=== PATIENT | male | born 1965 | race Caucasian/White ===

== ENCOUNTER 2017-07-09 12:21 | Emergency (ER) | payer MEDICAID ==
[~2017-07-09] VITALS: Ht 172.7 cm; Wt 84.1 kg
[2017-07-09] MEDS ORDERED: CEPH-571 PO (12:37)
[2017-07-09 12:44] VITALS: BP 115/76
== END 2017-07-09 12:48 ==
LOC: ER 12:21
DX: L03.115 Cellulitis of right lower limb (principal); F15.10 Other stimulant abuse, uncomplicated; Z98.890 Other specified postprocedural states; Z59.0 Homelessness; Z56.0 Unemployment, unspecified; Z79.899 Other long term (current) drug therapy
CPT/HCPCS: 99283

== ENCOUNTER 2019-02-25 22:06 | Emergency (ER) | payer MEDICAID, OTHER ==
[~2019-02-25] VITALS: Ht 172.7 cm; Wt 59.0 kg
[~2019-02-25 22:06] MED LIST: CEPH-571 PO
[2019-02-25] MEDS ORDERED: morphine 4 MG/ML inj SYRINge IV ONE (22:20)
[2019-02-25 23:36] VITALS: BP 136/86
[2019-02-25] MEDS ORDERED: LIDOcaine 1% w/EPI 1:200,000 injection 10mL vial IM ONE (23:50)
[2019-02-25] MEDS ORDERED: LIDOcaine 1% w/epiNEPHrine 1:200,000 30ml vial IM ONE (23:50)
[2019-02-26] MEDS ORDERED: LIDOcaine 1% w/EPI 1:200,000 injection 10mL vial IM ONE (01:20)
[2019-02-26] MEDS ORDERED: AMOX-580 PO (01:48)
[2019-02-26] MEDS ORDERED: HYDR-3965 PO (01:48)
[2019-02-26] MEDS ORDERED: amox tr/potassium clavulanate 875/125mg TAB PO ONE (01:50)
== END 2019-02-26 02:15 | disposition home or self-care (01) ==
LOC: ER 22:06
DX: S81.811A Laceration without foreign body, right lower leg, initial encounter (principal); S81.831A Puncture wound without foreign body, right lower leg, initial encounter; F20.9 Schizophrenia, unspecified; F41.9 Anxiety disorder, unspecified; F32.9 Major depressive disorder, single episode, unspecified; F15.90 Other stimulant use, unspecified, uncomplicated; Z56.0 Unemployment, unspecified; Z59.0 Homelessness; W54.0XXA Bitten by dog, initial encounter; Y93.9 Activity, unspecified; Y92.009 Unspecified place in unspecified non-institutional (private) residence as the place of occurrence of the external cause; Y99.9 Unspecified external cause status
CPT/HCPCS: 12004; 73590; 96374; 99284; J2270

== ENCOUNTER 2019-10-09 02:08 | Emergency (ER) | payer MEDICAID ==
[~2019-10-09] VITALS: Ht 172.7 cm; Wt 68.2 kg
[2019-10-09] MEDS ORDERED: ondansetron/PF 4mg/2ml inj IV ONE (02:20)
[2019-10-09 02:34] LABS: BASOPHILS # (AUTO) 0.2 X10'3 (0-0.2); BASOPHILS % (AUTO) 1.2 % (0-1); EOSINOPHILS # (AUTO) 0.2 X10'3 (0-0.9); EOSINOPHILS % (AUTO) 0.9 % (0-6); HEMATOCRIT 40.5 % (42.0-52.0); HEMOGLOBIN 13.5 g/dl (14.0-17.9); LYMPHOCYTES # (AUTO) 2.6 X10'3 (1.1-4.8); MEAN CORPUSCULAR HEMOGLOBIN 30.2 PG (27.0-31.0); MEAN CORPUSCULAR HGB CONC 33.4 g/dL (33.0-36.5); MEAN CORPUSCULAR VOLUME 90.5 FL (78-98); MEAN PLATELET VOLUME 8.4 FL (7.4-10.4); MONOCYTES # (AUTO) 1.1 X10'3 (0-0.9); MONOCYTES % (AUTO) 6.4 % (2-12); NEUTROPHILS # (AUTO) 13.2 X10'3 (1.8-7.7); NEUTROPHILS % (AUTO) 76.5 % (42-75); PLATELET COUNT 305 X10'3 (140-440); RED BLOOD COUNT 4.47 X10'6 (4.70-6.10); RED CELL DISTRIBUTION WIDTH 13.8 % (11.5-14.5); WHITE BLOOD COUNT 17.3 X10'3 (4.5-11.0)
[2019-10-09] MEDS ORDERED: iohexol 300mg/ml 100ml inj. ONE (02:35)
[2019-10-09 02:49] LABS: PARTIAL THROMBOPLASTIN TIME 24 SECONDS (22-32)
[2019-10-09 02:50] LABS: ALANINE AMINOTRANSFERASE 42 U/L (12-78); ALBUMIN 3.3 G/DL (3.4-5.0); ALBUMIN/GLOBULIN RATIO 0.7 (1.1-1.5); ALKALINE PHOSPHATASE 83 IU/L (46-116); ANION GAP 9 (8-16); BILIRUBIN,TOTAL 0.3 MG/DL (0.1-1.0); BLOOD UREA NITROGEN 17 MG/DL (7-18); CALCIUM 8.3 MG/DL (8.5-10.1); CHLORIDE 106 MMOL/L (99-107); CREATININE 1.21 MG/DL (0.60-1.10); GLUCOSE 170 MG/DL (70-104); SODIUM 139 MMOL/L (135-145); TOTAL CARBON DIOXIDE 24.1 MMOL/L (24-32); TOTAL PROTEIN 7.9 G/DL (6.4-8.2); eGFR 62 ML/MIN
[2019-10-09 02:52] LABS: ASPARTATE AMINO TRANSFERASE 55 U/L (10-37); ETHANOL < 0.010 GM/DL (0.0-0.010); POTASSIUM 4.2 MMOL/L (3.5-5.1)
[2019-10-09] MEDS: morphine 4 MG/ML inj SYRINge IV PRN ×4 (03:21→05:54)
[2019-10-09] MEDS ORDERED: NO HOME MEDS (03:39)
[2019-10-09] MEDS ORDERED: morphine 4 MG/ML inj SYRINge IV ONE (04:30)
--- NOTE | 2019-10-09 04:55 | NUR ---
pt moved from bed 9 to bed 4
[2019-10-09] MEDS ORDERED: LIDOcaine 1% W/epiNEPHrine 1:100,000 20ml vial SQ ONE (05:20)
[2019-10-09] MEDS ORDERED: fentaNYL/PF 50MCG/1 ML 2ML syringe IV ONE (06:00)
--- NOTE | 2019-10-09 06:16 | NUR ---
pt states he does not need to urinate at this time. pt instructed we need a urine sample. pt states he will provide one "soon" pt is now sleeping. no signs of distress.
--- NOTE | 2019-10-09 06:43 | NUR ---
Spoke with patient about calling Gideon who is listed as next of kin/family member. When asked he said, "why?" I told him just so that he could have family aware and available for him. He shook his head and said, "no". Will not contact family per patients request.
[2019-10-09 07:15] VITALS: BP 125/83
== END 2019-10-09 07:21 | disposition short-term general hospital (02) ==
LOC: ER 02:08
DX: S02.92XB Unspecified fracture of facial bones, initial encounter for open fracture (principal); R10.31 Right lower quadrant pain; R22.0 Localized swelling, mass and lump, head; J93.83 Other pneumothorax; F41.9 Anxiety disorder, unspecified; F32.9 Major depressive disorder, single episode, unspecified; F20.9 Schizophrenia, unspecified; F15.90 Other stimulant use, unspecified, uncomplicated; Z98.890 Other specified postprocedural states; Z87.11 Personal history of peptic ulcer disease; Z56.0 Unemployment, unspecified; Z59.0 Homelessness; X58.XXXA Exposure to other specified factors, initial encounter; Y93.89 Activity, other specified; Y92.89 Other specified places as the place of occurrence of the external cause; Y99.8 Other external cause status
CPT/HCPCS: 32551; 36415; 70450; 70486; 71045; 71260; 72125; 74177; 80053; 80320; 85025; 85610; 85730; 86885; 86900; 86901; 96374; 96375; 96376; 99285; J2270; J2405; Q9967

== ENCOUNTER 2020-04-22 08:33 | Emergency (ER) | payer MEDICAID ==
[~2020-04-22] VITALS: Ht 172.7 cm; Wt 68.2 kg
[~2020-04-22 08:33] MED LIST changes: -CEPH-571 PO; +NO HOME MEDS
[2020-04-22 08:49] VITALS: BP 114/78
[2020-04-22] MEDS ORDERED: ketorolac tromethamine 15mg/ml inj. IM ONE (09:05)
[2020-04-22] MEDS ORDERED: acetaminophen 325mg tablet PO ONE (09:05)
== END 2020-04-22 09:28 | disposition home or self-care (01) ==
LOC: ER 08:34
DX: M54.89 Other dorsalgia (principal); F41.9 Anxiety disorder, unspecified; F32.9 Major depressive disorder, single episode, unspecified; F20.9 Schizophrenia, unspecified; F15.90 Other stimulant use, unspecified, uncomplicated; Z87.11 Personal history of peptic ulcer disease; Z98.890 Other specified postprocedural states; Z56.0 Unemployment, unspecified; Z59.0 Homelessness
CPT/HCPCS: 96372; 99283; J1885

== ENCOUNTER 2021-12-14 11:14 | Emergency (ER) | payer MEDICAID ==
[~2021-12-14] VITALS: Ht 172.7 cm; Wt 72.7 kg
[2021-12-14 11:15] VITALS: BP 131/82
== END 2021-12-14 13:51 | disposition left against medical advice (07) ==
LOC: ER 11:14
DX: L02.419 Cutaneous abscess of limb, unspecified (principal); Z53.21 Procedure and treatment not carried out due to patient leaving prior to being seen by health care provider

== ENCOUNTER 2022-02-03 16:14 | Emergency (ER) | payer MEDICAID ==
[~2022-02-03] VITALS: Ht 172.7 cm; Wt 72.7 kg
[2022-02-03 16:19] VITALS: BP 141/86
== END 2022-02-03 20:06 | disposition left against medical advice (07) ==
LOC: ER 16:15
DX: M79.605 Pain in left leg (principal); Z53.21 Procedure and treatment not carried out due to patient leaving prior to being seen by health care provider

== ENCOUNTER 2022-02-07 16:33 | Emergency (ER) | payer MEDICAID ==
--- NOTE | 2022-02-07 17:13 | NUR ---
patient left before triage, "i will not wait for 5 hours".
== END 2022-02-07 19:36 | disposition left against medical advice (07) ==
LOC: ER 16:33
DX: M79.606 Pain in leg, unspecified (principal); Z53.21 Procedure and treatment not carried out due to patient leaving prior to being seen by health care provider
CPT/HCPCS: 99284

== ENCOUNTER 2023-03-21 09:40 | Emergency (ER) | payer MEDICAID ==
[~2023-03-21] VITALS: Ht 172.7 cm; Wt 70.6 kg
[2023-03-21 09:46] VITALS: BP 144/92; PULSE 87; TEMP 97.9; O2SAT 98
[2023-03-21 11:07] VITALS: RESP 16
[2023-03-21] MEDS: CefTRIAXone 1000mg IM Kit (w/lidocaine diluent) IM ONE (11:07)
[2023-03-21] MEDS: ketorolac trometh. 30mg/ml inj. IM ONE (11:07)
[2023-03-21] MEDS ORDERED: SULF1TAB49 PO (11:46)
[2023-03-21] MEDS ORDERED: CEPH-585 PO (11:46)
== END 2023-03-21 12:13 | disposition home or self-care (01) ==
LOC: ER 09:41
DX: L03.113 Cellulitis of right upper limb (principal); L02.511 Cutaneous abscess of right hand; F15.90 Other stimulant use, unspecified, uncomplicated; Z56.0 Unemployment, unspecified; Z59.00 Homelessness unspecified
CPT/HCPCS: 73140; 96372; 99284; J0696; J1885

== ENCOUNTER 2023-11-03 22:15 | Emergency (ER) | payer MEDICAID, OTHER ==
[~2023-11-03] VITALS: Ht 172.7 cm; Wt 71.6 kg
[2023-11-03] MEDS: acetaminophen 325mg tablet PO ONE (22:44)
[2023-11-03] MEDS: loperamide 2mg capsule PO ONE (22:44)
[2023-11-03] MEDS: ondansetron 4mg rapidly disintigrating tab PO ONE (22:45)
[2023-11-03] MEDS ORDERED: ONDA-243 PO (22:46)
[2023-11-03] MEDS ORDERED: ACET-1131 PO (23:57)
[2023-11-03] MEDS ORDERED: LOPE-190 PO (23:57)
[2023-11-04 00:04] VITALS: BP 120/64; PULSE 74; RESP 14; TEMP 98.2; O2SAT 100
== END 2023-11-04 00:06 | disposition home or self-care (01) ==
LOC: ER 22:16
DX: R11.10 Vomiting, unspecified (principal); R19.7 Diarrhea, unspecified; Z20.822 Contact with and (suspected) exposure to COVID-19; F41.9 Anxiety disorder, unspecified; F32.A Depression, unspecified; Z79.899 Other long term (current) drug therapy; Z98.890 Other specified postprocedural states; Z56.0 Unemployment, unspecified; Z59.00 Homelessness unspecified; F15.90 Other stimulant use, unspecified, uncomplicated
CPT/HCPCS: 36415; 87811; 99284

== ENCOUNTER 2024-10-13 16:21 | Emergency (ER) | payer MEDICAID ==
[~2024-10-13] VITALS: Ht 170.2 cm; Wt 81.8 kg
[~2024-10-13 16:21] MED LIST changes: +LOPE-190 PO; +ONDA-243 PO
[2024-10-13] MEDS ORDERED: LIDOcaine 1% W/epiNEPHrine 1:200,000 10ml vial IJ STA (20:31)
[2024-10-13] MEDS: TETanus/Pertussis (Acell)/Diphther VAC/PF (Tdap-Adult) 0.5ml syringe IMVAC ONE (20:49)
[2024-10-13] MEDS: cephalexin 250mg capsule PO ONE (20:50)
[2024-10-13] MEDS: LIDOcaine 1% W/epiNEPHrine 1:100,000 20ml vial IJ STA (21:07)
[2024-10-13] MEDS ORDERED: CEPH-585 PO (21:24)
--- NOTE | 2024-10-13 21:25 | Physician Documentation ---
History of Present Illness ~ Chief Complaint: Bite-animal Stated Complaint: DOG BITE Time Seen by MD: 19:24 Primary Medical Doctor: rodney grubbs Source: patient Mode of Arrival: POV Exam Limitations: no limitations HPI 58-year-old male presents to the department via EMS for dog bites to his left hand. He has multiple puncture hawkins with bleeding controlled and a laceration to the left index finger on the palmar side. The vaccine status of the dog is unknown, last tetanus unknown. EMS did clean wound and applied dressing prior to arrival. Tetanus within 5 years?: No Medication Reconciliation Allergies: Coded Allergies: No Known Allergies (Unverified , 11/03/23) Scheduled Cephalexin*Monohydrate* (Keflex*), 1 CAP PO Q8H Loperamide HCl (Imodium A-D), 1 CAP PO Q8H Scheduled PRN ONDANSETRON ODT 4mg tablet (Ondansetron Odt), 1 TAB PO Q6H PRN PRN for nausea/vomiting Miscellaneous Medications Home Med List (No Home Medications), (Reported) Past Medical History Past Medical History: Peptic Ulcer Disease, Anxiety, Depression, Schizophrenia Past Surgical History: orthopedic surgeries, other Alcohol Use: None Drug Use: methamphetamine Lives with: Other Lives In: Homeless Occupation: unemployed Physical Exam Vital Signs: RN Vital Signs have been reviewed: Yes, Temperature: 97.3, Source: Temporal, Heart Rate: 97, Respiratory Rate: 15, BP: 116/77, Pulse Oximetry: 97, Weight: 81.820 Pulse Oximetry Reflects: adequate oxygenation Physical Exam General: Alert, no distress. HEENT: No injection, moist mucous membranes. Neck: Full range of motion. Respiratory: No respiratory distress, equal chest rise and fall. Chest: No accessory muscle use. Cardiovascular: Regular rate and rhythm. Gastrointestinal: Nondistended. Extremities: Full range of motion, no deformity to left hand or fingers. Tenderness to palpation of left index finger near laceration. Neurologic: Oriented x4. Psychiatric: Normal mood and affect. Skin: Normal color, warm and dry. Laceration approximately 2 cm to palmar side of left index finger that is not well approximated. Procedures Laceration/Wound Repair Laceration/Wound Repair : Length (cm): 2 Anesthesia: Lidocaine w/ Epi Volume Anesthetic (mls): 5 Prep: betadine, irrigated by nurse, scrubbed, soaked Debrided: minimal Margins: flaps aligned Foreign Body: not identified Repaired: skin Wound Repaired With: sutures (Sutured loosely using 2 sutures to approximate the edges better but allow for secondary healing) Suture Size/Type: 3-0, ethilon Layer Closure?: No Splint Applied?: Yes Type of Splint Applied: Finger splint Sling Applied?: No Tolerated Procedure Well?: yes, no complications Progress Results/Orders Results/Orders Orders - ROSSY DUQUE Laceration/I&D Tray Set Up (10/13/24 ) Completed Orders - ROSSY DUQUE * Additional Wound Care Orders (10/13/24 19:58) Tetanus/Pertuss/Diph Acell/Pf (Boostrix (10/13/24 20:35) Cephalexin Capsule (Keflex Capsule) (10/13/24 20:35) Lidocaine 1% W/Epi 1:100,000 (Xylocaine (10/13/24 20:34) Medications Received in ER Medications (Trade) Dose Ordered Sig/Jay Route PRN Reason Start Time Stop Time Status Last Admin Dose Admin (Boostrix vaccine syringe) 0.5 ml ONCE ONCE IMVAC 10/13/24 20:35 10/13/24 20:36 DC 10/13/24 20:49 0.5 ML (Keflex capsule) 500 mg ONCE ONCE PO 10/13/24 20:35 10/13/24 20:36 DC 10/13/24 20:50 500 MG Vital Signs 10/13/24 10/13/24 10/13/24 16:25 18:30 21:30 Temp 97.3 98.6 Pulse 97 92 Resp 16 15 16 B/P (MAP) 136/90 116/77 (90) 118/78 Pulse Ox 99 97 99 Medical Decision Making Additional info obtained from: old records Findings 58-year-old male has left index finger laceration and multiple puncture hawkins on his hand after breaking up a dog fight. He has full range motion of his hand and fingers and his main pain is at the laceration site so I am not concerned for any fractures. We discussed the very low likelihood of rabies exposure as we are in the [place] but the vaccine status was unknown for this dog. This patient is requesting some antibiotics but is willing to forego the rabies vaccines. He is not sure when his last tetanus vaccine was so we gave him 1 today while in the department. I put 2 simple sutures to loosely close the left index finger and placed in a splint to prevent movement while healing using secondary intention. We discussed the very high likelihood of getting an infection from the multiple puncture hawkins in the laceration from a dog bite so I placed him on an Keflex antibiotic regimen which was sent to his pharmacy, 1st dose given while in the department. We discussed that if he has any worsening signs or symptoms of infection he needs to be seen immediately as he may need a secondary antibiotic. He should follow up with his primary care provider or the [facility] in the next 3 days to monitor wound healing, he should get sutures removed in 10 days and return back here for any new or worsening symptoms. He agrees with this plan. Differential Dx:Considerations: Include: Abrasion, Fracture, Hematoma, Neurovascular injury, Retained foreign body Departure Disposition: HOME / SELF CARE / HOMELESS Impression: Primary Impression: Dog bite Condition: Stable Discharge Instructions: Animal Bite, Adult Additional Instructions: Follow up with the primary care provider in the next 3 days. Monitor for worsening signs of infection as you may need a 2nd antibiotic for IV antibiotics. Here for you have 2 stitches loosely placed to help pull that flap of skin together as well as the finger splint. Remove the sutures in 10 days either here, or primary care or walk-in clinic. Take all antibiotics as prescribed and return back here for any new or worsening symptoms. Referrals: NO PRIMARY CARE PROVIDER (PCP) Prescriptions Cephalexin*Monohydrate* (Keflex*) 500 Mg Capsule 1 CAP PO Q8H for 10 Days, #30 CAP Prov: ROSSY DUQUE [facility] 10/13/24 Education Educated: Patient Educated regarding: diagnosis, treatment, prognosis, need for follow up Additional Comment Medical Screen Exam This patient recieved a medical screening examination. After reviewing the individual's medical complaints with presenting symptoms and performing an appropriate physical examination, it was determined that no immediate life- threatening emergency medical condition is present. This individual is also not a women having contractions. Signature Scribe Signature: . Attestation: Parts of this note were created using [employer] voice recognition software program. While efforts were made to correct any mistakes made by this voice recognition software program, nonsensical phrases may remain in this note. In addition, there may be errors and syntax, grammar, content and spelling. Scribed for Rossy Duque by Rossy Schilling NP . 10/14/24 00:41 ROSSY DUQUE Oct 13, 2024 21:25
[2024-10-13 21:30] VITALS: BP 118/78; PULSE 92; RESP 16; TEMP 98.6; O2SAT 99
== END 2024-10-13 21:31 | disposition home or self-care (01) ==
LOC: ER 16:22
DX: S61.211A Laceration without foreign body of left index finger without damage to nail, initial encounter (principal); F20.9 Schizophrenia, unspecified; F41.9 Anxiety disorder, unspecified; F32.A Depression, unspecified; F15.90 Other stimulant use, unspecified, uncomplicated; W54.0XXA Bitten by dog, initial encounter; Y93.89 Activity, other specified; Y92.89 Other specified places as the place of occurrence of the external cause; Y99.8 Other external cause status
CPT/HCPCS: 12001; 90471; 90715; 99284

== ENCOUNTER 2024-10-30 23:11 | Emergency (ER) | payer MEDICAID ==
[~2024-10-30] VITALS: Ht 172.7 cm; Wt 79.5 kg
[2024-10-30 23:15] VITALS: TEMP 97.8
[2024-10-30 23:35] LABS: MEAN PLATELET VOLUME 8.4 FL (7.4-10.4); RED CELL DISTRIBUTION WIDTH 13.6 % (11.5-14.5)
--- NOTE | 2024-10-30 23:37 | Physician Documentation ---
History of Present Illness ~ Chief Complaint: Abdominal Pain w/vomiting Stated Complaint: ABDOMINAL PAIN Time Seen by MD: 23:31 Primary Medical Doctor: rodney grubbs Source: patient, EMS, EMS notes reviewed Mode of Arrival: EMS Exam Limitations: no limitations HPI Chief Complaint: Abdominal pain Caveat: None Independent Historians: Paramedics History of Present Illness: Patient is a 58-year-old man who comes in complaining of diffuse abdominal pain that began at approximately 12:30 p.m. today. This is followed by nausea and vomiting. Patient EN route had dry h eaves. Patient denies any fever. Patient denies any blood in the vomit or blood in his stool. Patient denies any black stools. Patient denies any alleviating or exacerbating factors. The pain is described as sharp, crampy and severe. Patient was brought in by paramedics from home. Review of systems: All systems were reviewed and are negative except for what is indicated in the history of present illness. 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 Medications: Reviewed as documented Nursing Notes Allergies: Reviewed as documented in Nursing Notes Medication Reconciliation Allergies: Coded Allergies: No Known Allergies (Unverified , 10/30/24) Scheduled Loperamide HCl (Imodium A-D), 1 CAP PO Q8H Scheduled PRN ONDANSETRON ODT 4mg tablet (Ondansetron Odt), 1 TAB PO Q6H PRN PRN for nausea/vomiting Miscellaneous Medications Home Med List (No Home Medications), (Reported) Discontinued Medications Cephalexin*Monohydrate* (Keflex*), 1 CAP PO Q8H Discontinued Reason: Auto Discontinued Past Medical History Past Medical History: Peptic Ulcer Disease, Anxiety, Depression, Schizophrenia Past Surgical History: orthopedic surgeries, other Alcohol Use: None Drug Use: methamphetamine Lives with: Other Lives In: Homeless Occupation: unemployed Review of Systems All Other Systems at this time: Reviewed and Negative ROS Patient denies any other acute symptoms other than above. All other systems are negative Physical Exam Vital Signs: RN Vital Signs have been reviewed: Yes, Temperature: 97.8, Source: Axillary, Heart Rate: 81, Respiratory Rate: 20, BP: 115/67, Pulse Oximetry: 98, Weight: 79.500 Pulse Oximetry Reflects: adequate oxygenation Physical Exam General Appearance: Moderate distress HEENT: Normal OP, moist oral mucosa, PERRL, EOMI Neck: supple, normal ROM, trachea midline Pulmonary: No respiratory distress, CTA, BS equal Cardiac: RRR, no murmur, rub or gallop, GI: nondistended, soft, nontender, normal bowel sounds, no guarding, no rebound Extremities: normal ROM, no swelling, non-tender Skin: intact, dry, warm, no rashes Neuro: AAOx3, speech is clear, no focal motor weakness Psych: normal affect, good eye contact, no apparent hallucination, normal speech Progress Results/Orders Results/Orders Orders - OWEN CHAUDHRY MD Urinalysis, Cult If Indicated (10/30/24 23:25) Morphine 4mg/Ml Inj. (Morphine Inj.) (10/30/24 23:35) Ed Iv Pain Medications (10/30/24 23:31) Ct Abdomen Pelvis (10/30/24 23:31) Monitor (10/30/24 23:31) Saline Lock (10/30/24 23:31) Nothing By Mouth (10/31/24 Dinner) Completed Orders - OWEN CHAUDHRY MD Cbc/Diff (10/30/24 23:25) BMP (10/30/24 23:25) Lipase (10/30/24 23:25) CMP (10/30/24 23:25) Ondansetron Inj. (Zofran 4mg/2ml Vial) (10/30/24 23:35) Normal Saline 1000ml (0.9% Sodium Chlori (10/30/24 23:35) Ct Abdomen Pelvis (10/30/24 23:31) Medications Received in ER Medications (Trade) Dose Ordered Sig/Jay Route PRN Reason Start Time Stop Time Status Last Admin Dose Admin (Zofran 4mg/2ml vial) 4 mg ONCE ONCE IV 10/30/24 23:35 10/30/24 23:36 DC 10/30/24 23:54 4 MG (morphine inj.) 4 mg Q20M PRN IV moderate to severe pain 4-10 10/30/24 23:35 10/30/24 23:54 4 MG (0.9% sodium chloride (NS) 1000ml IV soln) 1,000 ml ONCE ONCE IVB 10/30/24 23:35 10/30/24 23:36 DC 10/30/24 23:54 1,000 ML Vital Signs 10/30/24 10/30/24 10/31/24 10/31/24 23:15 23:24 00:30 01:28 Temp 97.8 Pulse 81 67 66 Resp 20 20 16 16 B/P (MAP) 115/67 145/77 (99) 148/72 (97) Pulse Ox 98 100 99 Laboratory Tests Test 10/30/24 23:22 White Blood Count 9.5 Red Blood Count 4.93 Hemoglobin 14.7 Hematocrit 43.0 Mean Corpuscular Volume 87.2 Mean Corpuscular Hemoglobin 29.7 Mean Corpuscular Hemoglobin Concent 34.1 Red Cell Distribution Width 13.6 Platelet Count 336 Mean Platelet Volume 8.4 Neutrophils (%) (Auto) 63.9 Lymphocytes (%) (Auto) 25.5 Monocytes (%) (Auto) 7.7 Eosinophils (%) (Auto) 2.1 Basophils (%) (Auto) 0.8 Neutrophils # (Auto) 6.1 Lymphocytes # (Auto) 2.4 Monocytes # (Auto) 0.7 Eosinophils # (Auto) 0.2 Basophils # (Auto) 0.1 CBC Comment Sodium Level 129 L Potassium Level 4.3 Chloride Level 97 L Carbon Dioxide Level 21.8 L Anion Gap 10 Blood Urea Nitrogen 38 H Creatinine 1.43 H Estimated GFR/1.73 m2 51 BUN/Creatinine Ratio 26.6 H Glucose Level 124 H Calcium Level 9.7 Total Bilirubin 0.5 Aspartate Amino Transf (AST/SGOT) 46 H Alanine Aminotransferase (ALT/SGPT) 48 Alkaline Phosphatase 103 Total Protein 9.2 H Albumin 4.1 Globulin 5.1 H Albumin/Globulin Ratio 0.8 L Lipase 39 Chemistry Comments Medical Decision Making Findings Differential diagnosis includes but is not limited to: Small-bowel obstruction, volvulus, perforated viscus, cholelithiasis, biliary colic, choledocholithiasis, acute gastritis, GI bleed, diverticulitis, duodenitis EKG independent interpretation: Chest x-ray, single view, indication: Independent interpretation: Abdomen pelvis CT scan without IV contrast, indication: Abdominal pain Impression: Moderate colonic stool burden. Correlate clinically for constipation. Normal appendix Laboratory data independent interpretation: CBC: Unremarkable CMP: Unremarkable Urinalysis: Emergency department course/medical decision-making: PATIENT PRESENTS WITH ACUTE ABDOMINAL PAIN. Patient is given 1 L of normal saline, morphine 4 mg IV and Zofran 4 mg IV. Patient's lab work shows some mild renal/chronic renal insufficiency which is at his baseline. However the patient's BUN is higher than usual. Patient is dehydrated. No infection has been identified. Patient's CT scan of the abdomen and pelvis is significant for large amount of stool but is otherwise negative. No infection identified. Test results and treatment plan reviewed with the patient. Patient re-evaluated at 1:10 a.m.. Patient's nausea and pain has resolved. He feels well enough to go home. Patient is stable for discharge. Departure Time of Disposition: :09 Disposition: HOME / SELF CARE / HOMELESS Impression: Primary Impression: Abdominal pain of unknown cause Additional Impressions: Nausea and vomiting Qualified Codes: R11.2 - Nausea with vomiting, unspecified Dehydration Condition: Improved Discharge Instructions: Abdominal Pain (Nonspecific), Dehydration, Adult Additional Instructions: THE CAUSE FOR YOUR ABDOMINAL PAIN IS UNKNOWN. YOU WERE DEHYDRATED. YOU WERE GIVEN IV FLUIDS. RETURN TO THE EMERGENCY DEPARTMENT IF YOUR SYMPTOMS RECUR OR WORSEN. Education Educated: Patient Educated regarding: diagnosis, treatment, need for follow up Signature Scribe Signature: No scribe Attestation: No scribe OWEN CHAUDHRY MD Oct 30, 2024 23:37
[2024-10-30 23:42] LABS: CREATININE 1.43 MG/DL (0.60-1.10); TOTAL CARBON DIOXIDE 21.8 MMOL/L (24-32)
[2024-10-30 23:43] LABS: eCRCL 54 ML/MIN; eGFR 51 ML/MIN
[2024-10-30] MEDS: morphine 4 MG/ML inj SYRINge IV PRN (23:54)
[2024-10-30] MEDS: ondansetron/PF 4mg/2ml inj IV ONE (23:54)
[2024-10-30] MEDS: normal saline 1000ML IV soln IVB ONE (23:54)
--- NOTE | 2024-10-31 00:18 | RADIOLOGY REPORT ---
COMPUTERIZED TOMOGRAPHY ABDOMEN AND PELVIS WITHOUT CONTRAST REASON FOR EXAM: Abdominal Pain COMPARISON: CT CHEST ABDOMEN PELVIS on DOS: 10/09/19 TECHNIQUE: Spiral scans were acquired from the diaphragm to the symphysis pubis without intravenous c ontrast administration. 2-D coronal and sagittal reformatted images were provided. Radiation optimiza tion: All CT scans at this facility use at least one of these dose optimization techniques: Automated exposure control mA and/or kV adjustment per patient size (includes targeted exams where dose is mat ched to clinical indication) or iterative reconstruction. RADIATION DOSE: CTDI: 16 mGy DLP: 791 mGy-cm FINDINGS: There is at least mild paraseptal emphysematous change noted at the visualized lung bases. There is n o pleural effusion. There is no pericardial effusion. The spleen is not enlarged. The liver is normal in size and contour. Evaluation of the abdominal org ans is suboptimal in the absence of intravenous contrast. Unenhanced appearance of the pancreas is un remarkable. No calcified gallstone is identified. There is no pericholecystic edema. The adrenal gla nds are normal. The kidneys are similar in size. There is no hydronephrosis of either kidney. There is no renal, ureteral, or bladder calculus. The urinary bladder is grossly unremarkable. The prosta te and seminal vesicles are within normal limits. The colonic stool burden is moderate. The appendix is normal. There is no pathologic distention of the small bowel to suggest obstruction. No free fluid is identified in the abdomen or pelvis. There is no pathologic lymphadenopathy by size criteria. Th ere is no abdominal aortic aneurysm. No acute osseous abnormality is identified. There is evidence of old healed fracture of the right femoral neck. There is grade 1 anterolisthesis of L5 on S1 secondar y to severe facet arthropathy. IMPRESSION: Moderate colonic stool burden. Correlate clinically for constipation. Normal appendix
[2024-10-31 01:28] VITALS: BP 148/72; PULSE 66; RESP 16; O2SAT 99
== END 2024-10-31 01:43 | disposition home or self-care (01) ==
LOC: ER 23:12
DX: R10.9 Unspecified abdominal pain (principal); R11.2 Nausea with vomiting, unspecified; E86.0 Dehydration; F41.9 Anxiety disorder, unspecified; F32.A Depression, unspecified; F20.9 Schizophrenia, unspecified; F15.90 Other stimulant use, unspecified, uncomplicated; Z56.0 Unemployment, unspecified; Z59.00 Homelessness unspecified
CPT/HCPCS: 36415; 74176; 80053; 83690; 85025; 96361; 96374; 96375; 99285; J2270; J2405; J7030

== ENCOUNTER 2024-12-26 12:29 | Emergency (ER) | payer MEDICAID ==
[~2024-12-26] VITALS: Ht 172.7 cm; Wt 79.8 kg
[~2024-12-26 12:29] MED LIST changes: -LOPE-190 PO; -ONDA-243 PO
[2024-12-26 12:38] VITALS: BP 129/86; PULSE 86; RESP 16; O2SAT 98
[2024-12-26] MEDS ORDERED: AMOX-580 PO (14:20)
--- NOTE | 2024-12-26 14:21 | Physician Documentation ---
History of Present Illness ~ Chief Complaint: Bite-animal Stated Complaint: DOG BITE Time Seen by MD: 14:02 OK to notify your PCP?: Yes Primary Medical Doctor: rodney grubbs Source: patient Mode of Arrival: POV Exam Limitations: no limitations HPI 59-year-old right-handed male with chief complaint dog bite to his left hand that occurred just an hour ago. He states that the dogs are both immunized for rabies and up-to-date. He is able to move his hand and fingers normally. He has had a tetanus within the last 10 years. Tetanus within 5 years?: No Medication Reconciliation Allergies: Coded Allergies: No Known Allergies (Unverified , 12/26/24) Scheduled Amox Tr/Potassium Clavulanate 875/125 MG (Augmentin 875/125 MG), 1 TAB PO Q12H Miscellaneous Medications Home Med List (No Home Medications), (Reported) Past Medical History Past Medical History: Peptic Ulcer Disease, Anxiety, Depression, Schizophrenia Past Surgical History: orthopedic surgeries, other Alcohol Use: None Drug Use: methamphetamine Lives with: Other Lives In: Homeless Occupation: unemployed Review of Systems All Other Systems at this time: Reviewed and Negative Physical Exam Vital Signs: Temperature: 98.6, Source: Temporal, Heart Rate: 86, Respiratory Rate: 16, BP: 129/86, Pulse Oximetry: 98, Weight: 79.800 Oxygen Flow Rate: 0 Physical Exam General Appearance: Alert, WD/WN. NAD. HEENT: NCAT, PERRL, EOMI. Neck: Supple, trachea midline. Cardiovascular: RRR. No m/r/g. Lungs: CTAB. Breathing unlabored Extremities: LFET HAND LACERATION MEASURING ABOUT 6CM IN LENGTH ON DORSAL SURFACE OF HAND. AROM OF DIGIT IS FULL; HOWEVER, WHEN HE FLEXES HIS DIGIT HIS DIGIT DOES NOT SMOOTHLY CLOSE, IT APPEARS TO CATCH WHEN HE MATCHES A FIST. EXTENSION IS COMPLETELY NORMAL. NO EDEMA, ERYTHEMA. Skin: Warm/dry, normal color Neurological: Alert and oriented x4, normal gait. Psychiatric: Affect congruent with mood. Procedures Procedures EXAM: DI HAND, COMPLETE (3VW MIN) CLINICAL INDICATION: dog bite TECHNIQUE: DI HAND, COMPLETE (3VW MIN) Comparison: DI FINGER(S) on DOS: 03/21/23 FINDINGS/IMPRESSION: There is no evidence of acute fracture or dislocation. The visualized joint space is well maintained. There is a punctate calcification at the base of the 5th proximal phalanx within the subcutaneous tissue, which could represent a radiopaque foreign body. Please correlate clinically. Laceration/Wound Repair Laceration/Wound Repair : Location: LEFT HAND Length (cm): 6 Anesthesia: Lidocaine w/ Epi Volume Anesthetic (mls): 10 Prep: irrigated by physician Irrigated w/ Saline (mls): 700 Debrided: minimal Undermining: none Margins: revised Foreign Body: not identified Repaired: skin Wound Repaired With: sutures Suture Size/Type: prolene Layer Closure?: No Dressing Applied: simple Splint Applied?: Yes Type of Splint Applied: VELCRO Sling Applied?: No Tolerated Procedure Well?: yes, no complications Procedure Note PART OF TENDON VISUALIZED BASE OF DIGIT MEDIAL DIGIT LIKELY CORRESPONDING TO WHAT IS NOTED ON XRAY PARTIAL CALCIFICATIONS Progress Progress Note FINGER PUT IN SPLINT, BRACED 5TH DIGIT AGAINST 4TH DIGIT Results/Orders Reviewed/noted all lab results: Yes Results/Orders Orders - ALLAN BUCKLEY Hand, Complete (3vw Min) (12/26/24 ) Amox Tr/Potassium Clavulanate (Augmentin (12/26/24 15:20) Completed Orders - ALLAN BUCKLEY Hand, Complete (3vw Min) (12/26/24 ) Lidocaine 1% W/Epi 1:100,000 (Xylocaine (12/26/24 14:25) Vital Signs 12/26/24 12:38 Temp 98.6 Pulse 86 Resp 16 B/P (MAP) 129/86 Pulse Ox 98 O2 Flow Rate 0 Re-Evaluation Re-Evaluation : Re-Evaluation: Improved Medical Decision Making Differential Dx:Considerations: Include: Abrasion, Allergic reaction, Anaphylaxis, Cellulitis, Contusion, Fracture, Hematoma, Insect envenomation, Laceration, Neurovascular injury, Punture wound, Retained foreign body, Urticaria, Other Additional Comment NO EVIDENCE OF TENDON INJURY MOVING DIGITS NORMALLY NO FOREIGN BODY VISUALIZED IMMUNIZATIONS ARE UP-TO-DATE INCLUDING THE DOG'S IMMUNIZATIONS NO CONCERNED THAT PATIENT NEEDS TO GET A RABIES IZ. Departure Time of Disposition: 14:18 Disposition: 01 HOME / SELF CARE / HOMELESS Impression: Primary Impression: Dog bite Qualified Codes: W54.0XXA - Bitten by dog, initial encounter Additional Impression: Extensor tendon laceration of finger with open wound Qualified Codes: S56.429A - Laceration of extensor muscle, fascia and tendon of unspecified finger at forearm level, initial encounter; S61.209A - Unspecified open wound of unspecified finger without damage to nail, initial encounter Condition: Stable Discharge Instructions: Animal Bite, Adult Additional Instructions: DUE TO SIZE OF LACERATION, EVEN THOUGH DOG BITE, I LOOSELY CLOSED DO NOT GET WET X 24HOURS SUTURES NEED TO BE REMOVED IN 7DAYS IF ANY SIGNS OR SYMPTOMS OF INFECTION RETURN TO ER I DID DETERMINE THAT YOU CUT AT LEAST PART OF YOUR EXTENSOR TENDON. IT IS A GOOD THAT YOUR ACTIVE RANGE OF MOTION OF YOUR FINGER IS FULL; HOWEVER, I SUSPECT THE CATCHING THAT IS OCCURRING WHEN YOU FLEX YOUR TENDON TO MAKE A FIST IS DUE TO THE TENDON INJURY YOU DID NOT WANT THIS TENDON ADDRESSED SINCE YOU COULD STILL MOVE YOUR FINGER AND YOU WHERE ANXIOUS TO GET DISCHARGED. WE SPLINTED YOUR FINGER AND RECOMMEND F/U WITH ORTHOPEDIST IF THIS CONTINUES. Referrals: NO PRIMARY CARE PROVIDER (PCP) Prescriptions Amox Tr/Potassium Clavulanate 875/125 MG (Augmentin 875/125 MG) 875 Mg-125 Mg Tablet 1 TAB PO Q12H for 5 Days, #10 TAB Prov: ALLAN BUCKLEY 12/26/24 Education Educated: Patient Educated regarding: diagnosis, treatment, need for follow up Signature Scribe Signature: Anel Attestation: ALLAN SMITH Dec 26, 2024 14:21
--- NOTE | 2024-12-26 14:24 | RADIOLOGY REPORT ---
EXAM: DI HAND, COMPLETE (3VW MIN) CLINICAL INDICATION: dog bite TECHNIQUE: DI HAND, COMPLETE (3VW MIN) Comparison: DI FINGER(S) on DOS: 03/21/23 FINDINGS/IMPRESSION: There is no evidence of acute fracture or dislocation. The visualized joint space is well maintained. There is a punctate calcification at the base of the 5th proximal phalanx within the subcutaneous tissue, which could represent a radiopaque foreign body. Please correlate clinically.
[2024-12-26] MEDS: LIDOcaine 1% W/epiNEPHrine 1:100,000 20ml vial IJ ONE (14:30)
[2024-12-26] MEDS: amox tr/potassium clavulanate 875/125mg TAB PO ONE (15:29)
[2024-12-26 15:41] VITALS: TEMP 98.6
== END 2024-12-26 15:44 | disposition home or self-care (01) ==
LOC: ER 12:30
DX: S61.412A Laceration without foreign body of left hand, initial encounter (principal); F41.9 Anxiety disorder, unspecified; F32.A Depression, unspecified; F20.9 Schizophrenia, unspecified; F15.90 Other stimulant use, unspecified, uncomplicated; Z56.0 Unemployment, unspecified; Z59.00 Homelessness unspecified; W54.0XXA Bitten by dog, initial encounter; Y93.9 Activity, unspecified; Y92.89 Other specified places as the place of occurrence of the external cause; Y99.8 Other external cause status
CPT/HCPCS: 12002; 73130; 99283; A6258; A6449